=== PATIENT | male | born 2000 | race Caucasian/White ===

== ENCOUNTER 2024-01-15 00:59 | Emergency (ER) | payer OTHER, SELFPAY ==
[2024-01-15 01:06] VITALS: BP 145/87; PULSE 108; TEMP 36.8; O2SAT 100; BMI 20.1
[2024-01-15] MEDS: LIDOCAINE HCL 1% 100 MG/10 ML MDV INJ (01:48)
--- NOTE | 2024-01-15 01:48 | ED_ITS ---
HPI - Skin/Abscess/Foreign Bdy General Chief complaint: Skin/Abscess/Foreign Body Stated complaint: left elbow laceration Time Seen by Provider: 01/15/24 01:15 Source: patient Mode of arrival: walk-in Limitations: no limitations History of Present Illness HPI narrative: 23-year-old male presents for a laceration to his left elbow. This was sustained at work on a sharp piece of metal just before coming into the e mergency department. He is left-handed. He has had a tetanus shot within the last 10 years. No other injuries were sustained and he has no numbness or weakness. Related Data Home Medications ?Medication ?Instructions ?Recorded ?Confirmed No Known Home Medications 01/15/24 01/15/24 Allergies Allergy/AdvReac Type Severity Reaction Status Date / Time No Known Drug Allergies Allergy Verified 01/15/24 01:11 Review of Systems ROS Narrative A ten point review of systems is negative except as noted above. PFSH PFSH Social History Little interest or pleasure in doing things: not at all Feeling down, depressed, or hopeless: not at all Exam Narrative Exam Narrative: Nurses note and vital signs reviewed and patient is not hypoxic. General: The patient appears well and in no apparent distress. Patient is resting comfortably on cart. Skin: Warm, dry, no pallor noted. There is no rash noted. Head: Normocephalic, atraumatic Eye: Normal conjunctiva, no drainage Ears, Nose, Mouth, and Throat: oral mucosa is moist. Nares patent. Cardiovascular: Regular Rate and Rhythm Respiratory: Patient is in no distress, no accessory muscle use GI: Nontender Musculoskeletal: Left elbow has a linear 1.5 cm laceration near the olecranon. No other wounds present. No obvious foreign body and no active bleeding. Neurological: A&O, normal speech Psychiatric: Cooperative Constitutional Vital Signs, click to edit/add: Last Vital Signs Temp 98.3 F 01/15/24 01:06 Pulse 108 H 01/15/24 01:06 Resp 16 01/15/24 01:06 BP 145/87 H 01/15/24 01:06 Pulse Ox 100 01/15/24 01:06 O2 Del Method Room Air 01/15/24 01:06 Course Vital Signs Vital signs: Vital Signs Temperature 98.3 F 01/15/24 01:06 Pulse Rate 108 H 01/15/24 01:06 Respiratory Rate 16 01/15/24 01:06 Blood Pressure 145/87 H 01/15/24 01:06 Pulse Oximetry 100 01/15/24 01:06 Oxygen Delivery Method Room Air 01/15/24 01:06 Temperature 98.3 F 01/15/24 01:06 Pulse Rate 108 H 01/15/24 01:06 Respiratory Rate 16 01/15/24 01:06 Blood Pressure 145/87 H 01/15/24 01:06 Pulse Oximetry 100 01/15/24 01:06 Oxygen Delivery Method Room Air 01/15/24 01:06 MDM - Skin/Abscess/Foreign Bdy MDM Narrative Medical decision making narrative: Sutures to be removed in 7 to 8 days. Treatment diagnosis and follow-up were discussed with the patient. Differential Diagnosis Differential diagnosis: Likely other (Laceration) Discharge Plan Discharge Chief Complaint: Skin/Abscess/Foreign Body Clinical Impression: Laceration of elbow, left Patient Disposition: Home, Self-Care Time of Disposition Decision: 01:48 Condition: Good Mode of Transportation: Private Vehicle Prescriptions / Home Meds: No Action No Known Home Medications Print Language: Estonian Instructions: Laceration (ED) Additional Instructions: Sutures to be removed on January 21 or January 22 Referrals: Physician,Non-Staff, MD [Primary Care Provider] - 1 week Procedures ED Procedure Instructions Procedures Procedures: The following procedure was performed by me. Local infiltration was carried out with 1% lidocaine without epinephrine resulting in good skin anesthesia. The area was prepped with Betadine x 3 and draped sterilely. It was explored for foreign body and none was found. The wound was then closed with two 4-0 Ethilon sutures resulting in good skin reapproximation and no complications. Hemostasis achieved.
--- NOTE | 2024-01-15 01:53 | PC.NURSE ---
2 sutures noted. Area well approximated.
== END 2024-01-15 02:03 | disposition home or self-care (01) ==
PROVIDERS: Emergency Provider Emergency Medicine
DX: S51.012A Laceration without foreign body of left elbow, initial encounter (principal); W26.9XXA Contact with unspecified sharp object(s), initial encounter
CPT/HCPCS: 12001; 99282

== ENCOUNTER 2024-01-26 07:11 | Emergency (ER) | payer OTHER, SELFPAY ==
[2024-01-26 07:17] VITALS: BP 130/80; PULSE 85; TEMP 36.8; O2SAT 97; BMI 20.3
--- OUTSIDE RECORDS SUMMARY | 2024-01-26 07:20 | XMS_ITS | CCD ---
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, DR DORMAN Primary Care Unavailable CATA KOROMA Admitting Unavailable CATA KOROMA Attending Unavailable Problems Problem Classification Problem Date Documented Date Episodic/Chronic Administrative/social admission (1 source) Encounter for examination for participation in sport; Translations: [Encounter for examination for participation in sport] Onset: 08-31-2017 Episodic E Codes: Fall (1 source) Fall on same level from slipping, tripping and stumbling with subsequent striking against other object, initial encounter; Translations: [FALL SAME LVL SLIP STRK OTH OBJ INT] Onset: 07-06-2021 Episodic Other congenital anomalies (1 source) Pectus excavatum; Translations: [Pectus excavatum] Onset: 08-31-2017 Chronic Superficial injury; contusion (4 sources) Abrasion of scalp, initial encounter; Translations: [ABRASION OF SCALP INITIAL ENCOUNTER] Onset: 07-05-2021 Episodic Results Test Name Value Interpretation Reference Range [facility] ity Registrationon 11-27-2020 Registration [id number] .[id number]:127 [facility] Consent for Treatmenton 12-04 Consent for Treatment [id number] .[id number]:127 [facility] Encounters Encounter Date Encounter Type Care Provider Facility Start: 07-05-2021 End: 07-05-[address] FLORIDA GARCIA Facility: Start: 08-31-2017 End: 09-01-2017 Ambulatory ANY [facility]ANT[facility] Procedures Date Procedure Procedure Detail Performing Clinician Start: 08-31-2017 Echo tthrc r-t 2d w/ wom-mode compl spec&colr d ANY CONSTANTINO Payers Date Payer Category Payer Unknown [id number] 2001 Unknown [id number] 1958 Unknown [id number] Summary Purpose Family History No Family History Records FoundNo Family History Records FoundNo Family History Records Found Advance Directives No Advanced Directives Records FoundNo Advanced Directives Records FoundNo Advanced Directives Records Found Additional Source Comments (unrecognized sect ion and content) No Status Records FoundNo Status Records FoundNo Status Records Found INFORMATION SOURCE (unrecogn ized section and content) DATE CREATED AUTHOR 09/01/2017 [facility] [place] DATE CREATED AUTHOR AUTHOR'S ORGANIZ ATION 11/28/2020 [facility] DATE CREATED AUTHOR AUTHOR'S ORGANIZ ATION [facility]06/2021 [facility] FOR RECORDS PERTAINING TO PATIENTS WHO ARE OR HAVE BEEN ENROLLED IN A CHEMICAL DEPENDENCY/SUBSTANCEABUSE PROGRAM, SOME INFORMATION MAY BE OMITTED. This clinical summary was aggregated from multiple sources. Caution should be exercised in using it in the provision of clinical care. This summary normalizes information from multiple sources, and as a consequence, information in this document may materially change the coding, format and clinical context of patient data. In addition, data may be omitted in some cases. CLINICAL DECISIONS SHOULD BE BASED ON THE PRIMARY CLINICAL RECORDS. [employer] provides no warranty or guarantee of the accuracy or completeness of information in this document.
--- NOTE | 2024-01-26 07:31 | ED.RECABL1 ---
HPI - Recheck/Abnormal Lab/Rx General Chief Complaint: Recheck/Abnormal Lab/Rx Stated Complaint: SUTURE REMOVAL Time Seen by Provider: 01/26/24 07:15 Source: patient Mode of arrival: walk-in Limitations: no limitations History of Present Illness HPI narrative: Patient is here for suture removal wound on his left elbow that were placed on January 14 Related Data Home Medications ?Medication ?Instructions ?Recorded ?Confirmed No Known Home Medications 01/15/24 01/15/24 Allergies Allergy/AdvReac Type Severity Reaction Status Date / Time No Known Drug Allergies Allergy Verified 01/15/24 01:11 Review of Systems ROS Status of ROS 10 or more systems reviewed and unremarkable except as noted in history and below PFSH PFSH Social History Little interest or pleasure in doing things: not at all Feeling down, depressed, or hopeless: not at all Exam Narrative Exam Narrative: Nurses notes and vital signs reviewed and patient is not hypoxic. Left posterior arm examination shows that the patient have a healing wound sutures were removed General: Well-appearing and in no apparent distress. Skin: Warm, dry, no pallor noted. No rash. Head: Normocephalic, atraumatic. Neck: Supple, non-tender. Eye: Pupils are equal, round and EOMI. No scleral icterus. Constitutional Vital Signs, click to edit/add: Last Vital Signs Temp 98.2 F 01/26/24 07:17 Pulse 85 01/26/24 07:17 Resp 16 01/26/24 07:17 BP 130/80 01/26/24 07:17 Pulse Ox 97 01/26/24 07:17 O2 Del Method Room Air 01/26/24 07:17 Course Vital Signs Vital signs: Vital Signs Temperature 98.2 F 01/26/24 07:17 Pulse Rate 85 01/26/24 07:17 Respiratory Rate 16 01/26/24 07:17 Blood Pressure 130/80 01/26/24 07:17 Pulse Oximetry 97 01/26/24 07:17 Oxygen Delivery Method Room Air 01/26/24 07:17 Temperature 98.2 F 01/26/24 07:17 Pulse Rate 85 01/26/24 07:17 Respiratory Rate 16 01/26/24 07:17 Blood Pressure 130/80 01/26/24 07:17 Pulse Oximetry 97 01/26/24 07:17 Oxygen Delivery Method Room Air 01/26/24 07:17 MDM - Recheck/Abnormal Lab/Rx MDM Narrative Medical decision making narrative: Healing wounds suture removed with no complication The patient is to follow up with primary care physician in next 2-3 days or to return to the emergency department should any of the signs or symptoms worsen or new symptoms develop. The patient agrees with the following Diagnosis and Treatment plan and the patient will be discharged home. Discharge Plan Discharge Chief Complaint: Recheck/Abnormal Lab/Rx Clinical Impression: Encounter for removal of sutures Patient Disposition: Home, Self-Care Time of Disposition Decision: 07:31 Condition: Good Prescriptions / Home Meds: No Action No Known Home Medications Print Language: Sri Lankan Instructions: Stitches Removal (ED) Referrals: Physician,Non-Staff, MD [Primary Care Provider] - 1 week
== END 2024-01-26 07:35 | disposition home or self-care (01) ==
PROVIDERS: Emergency Provider Emergency Medicine
DX: S51.012D Laceration without foreign body of left elbow, subsequent encounter (principal)
CPT/HCPCS: 99281